=== PATIENT | male | born 1955 | race Caucasian/White ===

== ENCOUNTER → 2019-12-07 12:19 | Outpatient (CLI) | payer BC, SELFPAY ==
--- NOTE | ~2019-12-07 | MR_ITS ---
EXAMINATION: MR cervical spine wo con DATE: 12/07/2019 13:09 INDICATION: Cervical spondylosis without myelopathy or radiculopathy. Neck pain. TECHNIQUE: Magnetic resonance imaging (MRI) of the cervical spine was performed without intravenous c ontrast. Sequences included sagittal T2-weighted FSE, sagittal STIR FSE, sagittal T1-weighted FSE, ax ial MERGE, and axial T2-weighted FSE. COMPARISON: Cervical spine MRI 12/28/2016 FINDINGS: There is 3 degrees levocurvature of cervical spine. There is 2 mm retrolisthesis of C5 on C 6 and 2 mm anterolisthesis of C7 on T1. Vertebral body heights are normal. There is severely decrease d disc height at C5-C6. The spinal cord signal intensity is normal. The following disc levels are spe cifically discussed: C2-C3: There is a central protrusion. There is no uncovertebral joint osteoarthritis. There is severe bilateral facet joint osteoarthritis. There is no neural foraminal stenosis. There is no central can al stenosis. C3-C4: The disc does not extend beyond the endplate margin. There is mild right and severe left uncov ertebral joint osteoarthritis. There is severe bilateral facet joint osteoarthritis. There is mild bi lateral neural foraminal stenosis. There is no central canal stenosis. C4-C5: The disc does not extend beyond the endplate margin. There is moderate bilateral uncovertebral joint osteoarthritis. There is severe right and moderate left facet joint osteoarthritis. There is m oderate right and mild left neural foraminal stenosis. There is no central canal stenosis. C5-C6: The disc is bulging. There is severe bilateral uncovertebral joint osteoarthritis. There is mo derate bilateral facet joint osteoarthritis. There is mild right and severe left neural foraminal jacqueline nosis. There is mild central canal stenosis with ventral indentation of the spinal cord. C6-C7: The disc does not extend beyond the endplate margin. There is mild right and moderate left unc overtebral joint osteoarthritis. There is severe bilateral facet joint osteoarthritis. There is mild bilateral neural foraminal stenosis. There is no central canal stenosis. C7-T1: The disc does not extend beyond the endplate margin. There is no uncovertebral joint osteoarth ritis. There is severe bilateral facet joint osteoarthritis. There is moderate right and mild left ne ural foraminal stenosis. There is no central canal stenosis. IMPRESSION: 1. Severe cervical spondylosis, worst at C5-C6, stable from 12/28/2016. Reviewed, dictated and finalized at location A. 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
== END ==
PROVIDERS: PCP Family Medicine
DX: M47.812 Spondylosis without myelopathy or radiculopathy, cervical region (principal)
CPT/HCPCS: 72141

== ENCOUNTER 2024-05-19 08:41 | Outpatient (CLI) | payer MEDICARE, SELFPAY ==
--- NOTE | ~2024-05-19 | PE_ITS ---
EXAMINATION: PET_PETPSMAST_PT DATE: 05/19/2024 10:48 INDICATION: Prostate cancer TECHNIQUE: 4.627 mCi of Locametz Ga-68(55-Xf-guhxcrxohd) was administered i.v. Low dose computed jimmy ography (CT) images were acquired from the base of the brain to the base of the brain to the proximal thighs for attenuation correction and anatomic localization. Positron emission tomography (PET) imag es were acquired in the same distribution beginning 91 minutes after injection. Images including fuse d PET/CT images were reconstructed in axial, coronal, and sagittal planes. Automated exposure control technique was employed. The dose-length product was 1248.18mGy-cm. COMPARISON: None FINDINGS: Head/neck: Typical pattern of symmetric physiologic increased activity in the lacrimal, parotid and submandibula r glands as well as along the mucosa of the nasal and oral cavities, pharynx and hypopharynx. No path ologically enlarged cervical lymphadenopathy or suspicious foci of increased uptake in the visualized head or neck. Chest: Mild dependent atelectasis in the lungs. No suspicious pulmonary nodules, pneumonia or pleural effusi on. Heart size is normal. Minimal atherosclerotic coronary artery calcific location and minimal aorti c valve calcification. Thoracic aorta is normal in caliber. No pathologically enlarged or PSMA avid t horacic lymphadenopathy. Abdomen/pelvis/proximal thighs: Physiologic renal accumulation and excretion of activity in the kidneys, bladder and along portions o f ureters. Subtle asymmetric increased uptake at the left posterior aspect of the enlarged prostate p otentially representing the site of the reported primary prostate cancer although level of activity i s relatively low with maximal SUV of 4.8. Normal degree and slightly heterogenous pattern of increase d uptake throughout the liver and spleen without radiologic correlate or dominant PSMA avid lesion. T he gallbladder, pancreas and bilateral adrenal glands are normal. Moderate uptake scattered throughou t the bowels with typical duodenal and proximal jejunal predominance and without radiologic correlate , also likely physiologic. There is moderate colonic diverticulosis with a sigmoid predominance witho ut adjacent inflammatory change to suggest diverticulitis. Normal appendix. Small right and moderate- sized left fat-containing inguinal hernias. No other abnormal foci of increased uptake or pathologica lly enlarged lymphadenopathy in the abdomen, pelvis or proximal thighs. Musculoskeletal: Mild S-shaped scoliosis with mild thoracic dextro scoliosis and mild lumbar levoscoliosis. Mild to mo derate thoracic and severe lumbar and lower cervical spondylosis. No suspicious lytic, blastic or PSM A avid bone lesions. IMPRESSION: 1. Subtle asymmetric increased uptake at the left posterior prostate which could represent a reported primary prostate cancer although the level activity remains relatively low. No other evident metasta tic disease although sensitivity would be decreased given the low uptake demonstrated by the suspecte d primary lesion. Reviewed, dictated and finalized at location A. IMPRESSION: 1. Subtle asymmetric increased uptake at the left posterior prostate which coul d represent a reported primary prostate cancer although the level activity consuelo ins relatively low. No other evident metastatic disease although sensitivity wo uld be decreased given the low uptake demonstrated by the suspected primary les ion.
== END 2024-05-19 08:42 | disposition home or self-care (01) ==
PROVIDERS: PCP Family Medicine; Visit Provider Radiology Radiation Oncology
DX: C61 Malignant neoplasm of prostate (principal)
CPT/HCPCS: 78815; A9596

== ENCOUNTER 2025-04-14 11:11 | Emergency (ER) | payer MEDICARE, SELFPAY ==
--- NOTE | ~2025-04-14 | CT_ITS ---
EXAMINATION: CT abdomen pelvis w con DATE: 04/14/2025 14:37 INDICATION: Left lower quadrant pain TECHNIQUE: Computed tomography (CT) of the abdomen and pelvis was performed with 100 cc Omnipaque 350 intravenous contrast. The dose-length product was 876.93 mGy-cm. Automated exposure control and iter ative reconstruction technique were employed. COMPARISON: CT dated 05/09/2009 FINDINGS: Lung bases are unremarkable. Dependent atelectasis. Heart size normal. No significant pleur al or pericardial effusion. Fatty infiltration of the liver. Gallbladder is mildly distended. The spleen, pancreas, right adrenal gland are unremarkable. There is a low-density 1.3 cm left adrenal mass, most likely benign adenoma. There are bilateral renal cysts. No hydronephrosis. Nonobstructive bowel gas pattern. There is thick ening of the sigmoid colon with multiple diverticula and surrounding inflammatory change, consistent with acute diverticulitis. No evidence for abscess. There is a fat-containing left inguinal hernia. M oderate-severe lumbar spondylosis. There is levoscoliosis. IMPRESSION: 1. Acute uncomplicated sigmoid diverticulitis. Reviewed, dictated and finalized at location A.
[2025-04-14 11:32] VITALS: BP 130/83; PULSE 77; RESP 18; TEMP 36.1; O2SAT 100
--- OUTSIDE RECORDS SUMMARY | 2025-04-14 12:15 | XMS_ITS | Encounter Summary ---
Author Organization [facility] Address [address] [place] [address] Care Team Providers Care Firearms Instructor Name Role Phone Unavailable Primary Care Provider Unavailabl e Encounter Details Date Type Department Care Team (Late st Contact Info) Description 11/25/2023 Lab Requisition [facility] - DermPath Lab [address] [facility] [place] [address] Mala Mccord MD [address] [facility] [address] [place] [address] Social History Tobacco Use Types Packs/Day Years Used Date Smoking Tobacco: Never Assessed Sex and Gender Information Value Date Recorded Sex Assigned at Not on file Legal Sex Male 11:16 AM RETAIL PRICING COORDINATOR Gender Identity Not on file Sexual Orientation Not on file documented as of this encounter Plan of Treatment Not on file documented as of this encounter Procedures Procedure Name Priority Date/Time Associated Diagnosis Comments DERMATOPATHOLOGY Routine 11/25/2023 9:19 AM RETAIL PRICING COORDINATOR documented in this encounter Results * DERMATOPATHOLOGY (11/25/2023 9:19 AM RETAIL PRICING COORDINATOR) Case Report Dermatopathology Report Case: [id number] Authorizing Provider: Mala Mccord MD Collected: 11/25/2023 09:19 AM Ordering Location: [facility] DermPath Lab Received: 11/26/2023 07:35 AM Pathologist: Sandra Feldman MD Specimen: Skin, left arm 12:35 PM RETAIL PRICING COORDINATOR DERMATOPATHOLOGY LABORATORY Final Diagnosis Specimen A. SKIN, left arm: SEBORRHEIC KERATOSIS, INFLAMED (L82.0) 12:35 PM RETAIL PRICING COORDINATOR DERMATOPATHOLOGY LABORATORY at 1235 RETAIL PRICING COORDINATOR Clinical History R/O Melanoma irregular Border, Irregular color, Brown Macule 12:[address] [facility] DERMATOPATHOLOGY LABORATORY Gross Description Specimen A: Received is one formalin filled container labeled with the patient's name and designated left arm. The specimen consists of a shave biopsy measuring 11x9x1 mm. Jar 0. 12:[address] [facility] DERMATOPATHOLOGY LABORATORY Microscopic Description Specimen A. SKIN, left arm: There is hyperkeratosis, parakeratosis, papillomatosis, and acanthosis of the epidermis. There is a lymphohistiocytic infiltrate within the papillary dermis that is focally lichenoid. 12:[address] [facility] DERMATOPATHOLOGY LABORATORY Disclaimer An external and internal positive and negative controls are appropriate for the histochemical, immunohistochemical and immunofluorescence stain(s) in this case (if any), except where stated explicitly. The performance characteristics of the stain(s) cited in this report were developed and its performance characteristic determined by the Dermatopathology Laboratory at [facility], directed by Dr. Wes Pearce. These tests need not be, and therefore are not, approved by the [place] Food and Drug Administration. The tests are used for clinical purposes. Billing Codes Specimen Charges Stain Charges 96701 1 12:[address] [facility] DERMATOPATHOLOGY LABORATORY Embedded Images 12:[address] [facility] DERMATOPATHOLOGY LABORATORY Pathology/Cytolo gy TISSUE SPECIMEN FROM SKIN / Unknown 11/25/2023 9:19 AM RETAIL PRICING COORDINATOR 11/26/2023 7:35 AM RETAIL PRICING COORDINATOR us Mala Mccord MD LAB - PATHOLOGY/CYTOLOGY ORD ERABLES Final Result DERMATOPATHOLOGY LABORATORY [facility] - Department of Dermatology [facility] Medicine [address] [place] [address], [address] [phone] documented in this encounter Visit Diagnoses Not on filedocumented in this encounter
--- OUTSIDE RECORDS SUMMARY | 2025-04-14 12:15 | XMS_ITS | Encounter Summary ---
Author Organization [facility] Address [address] [place] [address] Care Team Providers Care Rent And Miscellaneous Remittance Clerk Name Role Phone Unavailable Primary Care Provider Unavailabl e Encounter Details Date Type Department Care Team (Late st Contact Info) Description 12/02/2024 Lab Requisition [facility] - DermPath Lab [address] [facility] [place] [address] Mala Mccord MD [address] [facility] [address] [place] [address] Social History Tobacco Use Types Packs/Day Years Used Date Smoking Tobacco: Never Assessed Sex and Gender Information Value Date Recorded Sex Assigned at Not on file Legal Sex Male 11:16 AM SKIN CARE SPECIALIST Gender Identity Not on file Sexual Orientation Not on file documented as of this encounter Plan of Treatment Not on file documented as of this encounter Procedures Procedure Name Priority Date/Time Associated Diagnosis Comments DERMATOPATHOLOGY Routine 12/02/2024 10:1 3 AM SKIN CARE SPECIALIST documented in this encounter Results * DERMATOPATHOLOGY (12/02/2024 10:13 AM SKIN CARE SPECIALIST) Case Report Dermatopathology Report Case: [id number] Authorizing Provider: Mala Mccord MD Collected: 12/02/2024 10:13 AM Ordering Location: [facility] - Received: 12/03/2024 06:56 AM DermPath Lab Pathologist: Nickie Miguel MD Specimens: A) - Skin, crown B) - Skin, right shoulder 1:14 PM SKIN CARE SPECIALIST DERMATOPATHOLOGY LABORATORY Final Diagnosis Specimen A. SKIN, crown: BASAL CELL CARCINOMA (C44.41) (see microscopic description and comment) DERMAL FIBROSIS (L90.5) POST-INFLAMMATORY PIGMENT ALTERATION (L81.9) Specimen B. 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 The specimen consists of a shave biopsy measuring 4x3x1 mm. Jar 0. Specimen B: Received is one formalin filled container labeled with the patient's name and designated right shoulder. The specimen consists of a shave biopsy measuring 10x8x2 mm. Jar 0. 1:14 PM [facility] DERMATOPATHOLOGY LABORATORY Microscopic Description Specimen A. SKIN, crown: The specimen consists of aggregates of basaloid cells, located within the superficial dermis, with high nuclear to cytoplasmic ratio and peripheral palisading. There is focal dermal fibrosis. Sections show abundant melanin within melanophages around the superficial vascular plexus. COMMENT: The small size of the specimen limits subtyping of the lesion. Specimen B. SKIN, right shoulder: The epidermis shows parakeratosis, full thickness disorderly maturation of keratinocytes, mitoses at different levels, and dyskeratotic cells. Sections show abundant melanin within melanophages around the superficial vascular plexus. 1:14 PM [facility] DERMATOPATHOLOGY LABORATORY Disclaimer An external and internal positive and negative controls are appropriate for the histochemical, immunohistochemical and immunofluorescence stain(s) in this case (if any), except where stated explicitly. The performance characteristics of the stain(s) cited in this report were developed and its performance characteristic determined by the Dermatopathology Laboratory at [facility], directed by Dr. Wes Pearce. These tests need not be, and therefore are not, approved by the [place] Food and Drug Administration. The tests are used for clinical purposes. Billing Codes Specimen Charges Stain Charges 64200 42186 1 1 1:14 PM [facility] DERMATOPATHOLOGY LABORATORY Embedded Images 1:14 PM [facility] DERMATOPATHOLOGY LABORATORY Pathology/Cytology TISSUE SPECIMEN FROM SKIN / Unknown 12/02/2024 10:13 AM SKIN CARE SPECIALIST 12/03/2024 6:56 AM SKIN CARE SPECIALIST Miscellaneous samples (specimen) TISSUE SPECIMEN FROM SKIN / Unknown 12/02/2024 10:13 AM SKIN CARE SPECIALIST 12/03/2024 6:56 AM SKIN CARE SPECIALIST us Mala Mccord MD LAB - PATHOLOGY/CYTOLOGY ORD ERABLES Final Result DERMATOPATHOLOGY LABORATORY [facility] - Department of Dermatology [facility] Specialized Medicine [address] [place] [address], [address] [phone] documented in this encounter Visit Diagnoses Not on filedocumented in this encounter
--- OUTSIDE RECORDS SUMMARY | 2025-04-14 12:15 | XMS_ITS | Clinical Summary ---
Author Organization [facility] Address [address] [place] [address] Care Team Providers Care Zumba Instructor Name Role Phone Unavailable Primary Care Provider Unavailabl e Source Comments [facility],non-owned Affiliates and Associated Physician Practices is amultiple site organization consisting of ambulatory clinics and hospital sitesin [place], [place], [place] and [place]. This disclosure is being madepursuant to the Care Everywhere program and may not contain all information available regarding this patient. Last updated 18.[facility] [employer] Social History Tobacco Use Types Packs/Day Years Used Date Smoking Tobacco: Never Assessed Sex and Gender Information Value Date Recorded Sex Assigned at Not on file Legal Sex Male 11:16 AM PROTOTYPE MODEL MAKER Gender Identity Not on file Sexual Orientation Not on file Plan of Treatment Health Maintenance Due Date Last Done Comments COLOGUARD (AGES 45-75) - COL ON CA SCREENING 1955 COLON MONITORING 1955 COLONOSCOPY - COLON CA SCREENING 1955 CT COLONOGRAPHY - COLON CA SCREENING 1955 Colorectal Cancer Screening 1955 FIT - COLON CA SCREENING 1955 FLEX SIG - COLON CA SCREENING 1955 LIPID TESTING 1955 HEPATITIS C SCREENING 10/10/1973 DTAP/TDAP/TD VACCINES (1 - Tdap) 1974 PNEUMOCOCCAL VACCINE 50+ (1 of 1 - PCV) 2005 ZOSTER VACCINE (1 of 2) 2005 COVID-19 VACCINE ( - 2023-2 5 season) 2024 DEPRESSION SCREENING 11/10/2024 MEDICARE AWV CALENDAR YEAR 2024 INFLUENZA VACCINE (Season Ended) 2025 Respiratory Syncytial Virus (RSV) Vaccine Pt: or over 60 yrs (1 - 1-dose 75+ series) 2030 HEPATITIS B VACCINE Aged Out No longe r eligible based on patient's age to complete this topic HIB VACCINE Aged Out No longer eligi ble based on patient's age to complete this topic HPV VACCINE Aged Out No longer eligi ble based on patient's age to complete this topic MENINGOCOCCAL (Group B) VACC INE SHARED DECISION-MAKING Aged Out No longer eligibl e based on patient's age to complete this topic MENINGOCOCCAL GROUPS A/C/Y/W VACCINE Aged Out No longer eligible b ased on patient's age to complete this topic Insurance [facility] MANAGED MEDICARE ADV
--- OUTSIDE RECORDS SUMMARY | 2025-04-14 12:15 | XMS_ITS | Encounter Summary ---
Author Organization [facility] Address [address] [place] [address] Care Team Providers Care Net Architect Name Role Phone Unavailable Primary Care Provider Unavailabl e Encounter Details Date Type Department Care Team (Late st Contact Info) Description 06/04/2023 Lab Requisition [facility] - DermPath Lab [address] [facility] [place] [address] Mala Mccord MD [address] [facility] [address] [place] [address] Social History Tobacco Use Types Packs/Day Years Used Date Smoking Tobacco: Never Assessed Sex and Gender Information Value Date Recorded Sex Assigned at Not on file Legal Sex Male 11:16 AM WHITE SPOOLER Gender Identity Not on file Sexual Orientation Not on file documented as of this encounter Plan of Treatment Not on file documented as of this encounter Procedures Procedure Name Priority Date/Time Associated Diagnosis Comments DERMATOPATHOLOGY Routine 06/04/2023 1:19 PM CDT documented in this encounter Results * DERMATOPATHOLOGY (06/04/2023 1:19 PM CDT) Case Report Dermatopathology Report Case: [id number] Authorizing Provider: Mala Mccord MD Collected: 06/04/2023 01:19 PM Ordering Location: [facility] DermPath Lab Received: 06/05/2023 02:48 PM Pathologist: Nickie Miguel MD Specimen: Skin, right restorationist 3 4:36 PM CDT DERMATOPATHOLOGY LABORATORY Final Diagnosis Specimen A. SKIN, right restorationist: SQUAMOUS CELL CARCINOMA, WELL DIFFERENTIATED (C44.329) 3 4:36 PM CDT DERMATOPATHOLOGY LABORATORY at 1636 CDT Clinical History NONHEALING, GROWING, R/O SCC VS BCC 3 4:36 PM CDT DERMATOPATHOLOGY LABORATORY Gross Description Specimen A: Received is one formalin filled container labeled with the patient's name and designated right restorationist. The specimen consists of a shave biopsy measuring 11x8x2 mm. Jar 0. 3 4:36 PM CDT DERMATOPATHOLOGY LABORATORY Microscopic Description Specimen A. SKIN, right restorationist: Arising in the epidermis and extending into the dermis there are irregularly shaped aggregates of keratinocytes showing evidence of premature cornification. 3 4:36 PM CDT DERMATOPATHOLOGY LABORATORY Disclaimer An external and internal positive and negative controls are appropriate for the histochemical, immunohistochemical and immunofluorescence stain(s) in this case (if any), except where stated explicitly. The performance characteristics of the stain(s) cited in this report were developed and its performance characteristic determined by the Dermatopathology Laboratory at [facility], directed by Dr. Wes Pearce. These tests need not be, and therefore are not, approved by the [place] Food and Drug Administration. The tests are used for clinical purposes. Billing Codes Specimen Charges Stain Charges 70568 1 3 4:36 PM CDT DERMATOPATHOLOGY LABORATORY Embedded Images 3 4:36 PM CDT DERMATOPATHOLOGY LABORATORY Pathology/Cytolo gy TISSUE SPECIMEN FROM SKIN / Unknown 06/04/2023 1:19 PM CDT 06/05/2023 2:48 PM CDT us Mala Mccord MD LAB - PATHOLOGY/CYTOLOGY ORD ERABLES Final Result DERMATOPATHOLOGY LABORATORY [facility] - Department of Dermatology [facility] Medicine [address] [place] [address], [address] [place] [address], [facility] [phone] documented in this encounter Visit Diagnoses Not on filedocumented in this encounter
[2025-04-14 13:52] VITALS: BP 160/81; PULSE 75; RESP 16; TEMP 36.7; O2SAT 98
[2025-04-14 13:59] LABS: Basophils Percent Auto 0.3 % (0.2-1.2); Eosinophils Percent Auto 0.3 % (0-4.4); Hematocrit 39.3 % (42.0-52.0); Immature Granulocyte Absolute 0.02 K/mm3 (0.00-0.031); Immature Granulocyte Percent A 0.3 % (0-0.5); Lymphocytes Absolute Auto 0.48 K/mm3 (0.9-3.2); Lymphocytes Percent Auto 6.3 % (18.3-44.2); Mean Corpuscular HGB Conc 33.1 g/dl (32-36); Mean Corpuscular Hemoglobin 30.7 pg (26-34); Mean Corpuscular Volume 92.7 fl (80-100); Mean Platelet Volume 10.3 fl (7.4-10.4); Monocytes Absolute Auto 0.5 K/mm3 (0.1-0.6); Monocytes Percent Auto 6.7 % (2.6-8.5); Neutrophils Absolute Auto 6.6 K/mm3 (1.3-6.7); Neutrophils Percent Auto 86.1 % (45.5-73.1); Platelet Count Result 151 k/mm3 (150-375); Red Blood Count 4.24 M/mm3 (4.6-6.20); Red Cell Distribution Width 12.6 % (11.5-14.5); White Blood Count 7.7 K/mm3 (4.5-10.0)
[2025-04-14 14:00] LABS: Add Urine Microscopic? NO; Appearance Urine Clear (Clear); Bilirubin Urine Negative (Negative); Blood Urine Negative (Negative); Color Urine Yellow (Yellow); Glucose Urine UA Negative (Negative); Ketones Urine Negative (Negative); Leukocyte Esterase Ur Negative LEU/UL (Negative); Nitrate Urine Negative (Negative); Protein Urine Negative (Negative); Specific Grav Ur 1.008 (1.001-1.035); Urobilinogen Urine 0.2 mg/dL (<2.0)
[2025-04-14 14:22] LABS: Alanine Aminotransferase 22 U/L (6-50); Albumin Level 4.5 g/dL (3.5-5.1); Alkaline Phosphatase 78 U/L (38-126); Anion Gap 7 mmol/L (4-12); Aspartate Amino Transferase 32 U/L (17-59); Bilirubin,Total 0.6 mg/dL (0.2-1.3); Blood Urea Nitrogen 14 mg/dL (9-20); Calcium 9.3 mg/dL (8.4-10.2); Carbon Dioxide 27 mmol/L (22-30); Chloride 103 mmol/L (98-107); Estimated CRCL calculation 99 ml/min; Estimated Glomerular Filt Rate > 60; Glucose 108 mg/dL (65-110); Lipase 29 U/L (23-300); Potassium 4.5 mmol/L (3.4-5.0); Sodium 137 mmol/L (137-145); Total Protein 7.8 g/dL (6.3-8.2)
--- NOTE | 2025-04-14 14:37 | ED_ITS ---
HPI - General Adult General Chief complaint: Abdominal Pain Stated complaint: left abd pain Time Seen by Provider: 04/14/25 13:57 History of Present Illness HPI narrative: 69-year-old male history of diverticulitis presenting to the emergency department for evaluation for intermittent left lower quadrant pain and an episode bloody stools. Patient states he has had some issues with constipation over the last few days as well. Patient does have a history of prostate cancer. Patient reports his last colonoscopy was approximately 5 years ago Related Data Home Medications ?Medication ?Instructions ?Recorded ?Confirmed ?Last Taken ?Type L.acidop,casei,lactis,rham-B.lact,trevor 1 cap PO BID 05/05/23 12/13/24 Unknown History 625 mg (10 billion cell) capsule (Advanced Probiotic) ascorbic acid (vitamin C) 500 mg 250 mg PO DAILY 05/05/23 12/13/24 Unknown History tablet fish, borage, flaxseed oils-omega 1 cap PO BID 05/05/23 12/13/24 Unknown History 3,6,9 comb no.1 1,200 mg capsule ([place] 3-6-9) ginkgo biloba leaf extract 120 mg 120 mg PO DAILY 05/05/23 12/13/24 Unknown History capsule jqhtptnvvvq-svy-hlexqjsdq-hrb 1 tablet PO BID 05/05/23 12/13/24 Unknown History 149-hyalur 500 mg-500 mg-66.7 mg tablet (Iborkdlnuyc-Ihtliedyjvt-JDI (with antiox)) uioyqfslvydx-qgb-oyjcu acid-vit 1 tablet PO DAILY 05/05/23 12/13/24 Unknown History K-lycop 400 mcg-20 mcg-370 mcg tablet (Men's 50 Plus Multivitamin) naproxen sodium 220 mg tablet 440 mg PO DAILY 05/05/23 12/13/24 Unknown History sour angulo extract 1,000 mg mg PO 12/04/23 12/13/24 Unknown History capsule (Tart Angulo Extract) Allergies Allergy/AdvReac Type Severity Reaction Status Date / Time No Known Allergies Allergy Mild Verified 12/13/24 10:59 Review of Systems 2 Review of Systems: All systems reviewed & are unremarkable except as noted in HPI and below PMFSH Past Medical History Medical History Abnormal liver function tests Prostate cancer Other dysphagia Polyosteoarthritis, unspecified Mixed hyperlipidemia Essential (primary) hypertension Social History Social History Smoking status: Never smoker Alcohol intake: never Substance use: never Substance use type: does not use Do You Feel Safe in your Home?: Yes Lack of Transportation: No Lack of Food: Never True Current Housing: I Have Housing Concerned About Future Housing: No Difficulty Paying Gas/Electric Bills: No Difficulty Paying for Meds: No Currently Unemployed: No Education: High School Diploma/GED Difficulty w/ Childcare or Family Care: No Living arrangements: with family Occupation/Education: retired Gender identity (if verbalized by the patient): Male Sexual Orientation (if Verbalized by the Patient): Straight or Heterosexual Spiritual care concerns: No Exam 2 Narrative: APPEARANCE: Well appearing, no pain, no distress, well-nourished. HEAD: normocephalic, atraumatic. EYES: PERRLA/EOMI, conjunctivae clear. NOSE: Normal no drainage EARS:TMS clear with good light reflex. THROAT: Pharynx clear, no exudate. NECK: Supple. No adenopathy, no masses. RESPIRATORY: Airway patent, respirations nonlabored. Clear to auscultation bilaterally, no rales, rhonchi, wheezing. CARDIOVASCULAR: Regular rate and rhythm without murmurs rubs or gallops. ABDOMINAL: Left lower quadrant tenderness to palpation, nondistended, normal bowel sounds MUSCULOSKELETAL: Moves all extremities. Strength/ROM intact, No edema, No calf tenderness. NEURO: Alert. Cranial nerves II through XII intact. Good gait. Good coordination SKIN: Warm, dry. Normal Color Course Vital Signs Vital signs: Vital Signs Temperature 97.0 F L 04/14/25 11:32 Pulse Rate 77 04/14/25 11:32 Respiratory Rate 18 04/14/25 11:32 Blood Pressure 130/83 04/14/25 11:32 Pulse Oximetry 100 04/14/25 11:32 Oxygen Delivery Room Air 04/14/25 11:32 Temperature 98.0 F 04/14/25 13:52 Pulse Rate 80 04/14/25 15:39 Respiratory Rate 16 04/14/25 15:39 Blood Pressure 163/92 H 04/14/25 15:39 Pulse Oximetry 97 04/14/25 15:39 Oxygen Delivery Room Air 06/05/25 11:32 Medical Decision Making [facility] Narrative Medical decision making narrative: 69-year-old male presenting to the emergency department for evaluation for left lower quadrant pain. Patient is currently afebrile with leukocytosis hemoglobin of 13.0. Patient has no acute abnormalities on his CMP urine was negative for infection. CT scan does show evidence of uncomplicated diverticulitis. Patient was started on Cipro and Flagyl emergency department. Patient was discharged home with some medications. Differential Diagnosis Differential Diagnosis: Colitis, diverticulitis, external hemorrhoid, internal hemorrhoid, melena, hematochezia Vital Signs Vital Signs: Vital Signs Temperature 97.0 F L 04/14/25 11:32 Pulse Rate 77 04/14/25 11:32 Respiratory Rate 18 04/14/25 11:32 Blood Pressure 130/83 04/14/25 11:32 Pulse Oximetry 100 04/14/25 11:32 Oxygen Delivery Room Air 04/14/25 11:32 Temperature 98.0 F 04/14/25 13:52 Pulse Rate 80 04/14/25 15:39 Respiratory Rate 16 04/14/25 15:39 Blood Pressure 163/92 H 04/14/25 15:39 Pulse Oximetry 97 04/14/25 15:39 Oxygen Delivery Room Air 04/14/25 11:32 Lab Data Lab results reviewed: Yes I reviewed the patient's lab results. 04/14/25 13:54 04/14/25 13:54 Labs: Lab Results 04/14/25 Range/Units 13:54 WBC 7.7 (4.5-10.0) K/mm3 RBC 4.24 L (4.6-6.20) M/mm3 Hgb 13.0 L (14.0-18.0) g/dL Hct 39.3 L (42.0-52.0) % MCV 92.7 (80-100) fl MCH 30.7 (26-34) pg MCHC 33.1 (32-36) g/dl RDW 12.6 (11.5-14.5) % Plt Count 151 (150-375) k/mm3 MPV 10.3 (7.4-10.4) fl Immature Gran % (Auto) 0.3 (0-0.5) % Neut % (Auto) 86.1 H (45.5-73.1) % Lymph % (Auto) 6.3 L (18.3-44.2) % Ida % (Auto) 6.7 (2.6-8.5) % Eos % (Auto) 0.3 (0-4.4) % Baso % (Auto) 0.3 (0.2-1.2) % Lymph # (Auto) 0.48 L (0.9-3.2) K/mm3 Ida # (Auto) 0.5 (0.1-0.6) K/mm3 Eos # (Auto) 0.0 (0-0.3) K/mm3 Baso # (Auto) 0.0 (0.0-0.1) K/mm3 Abs Immat Gran (auto) 0.02 (0.00-0.031) K/mm3 Absolute Neuts (auto) 6.6 (1.3-6.7) K/mm3 Absolute Nucleated RBC 0.000 (0.0-0.012) K/mm3 Nucleated RBC % 0.0 (0.0-0.2) % Sodium 137 (137-145) mmol/L Potassium 4.5 (3.4-5.0) mmol/L Chloride 103 (98-107) mmol/L Carbon Dioxide 27 (22-30) mmol/L Anion Gap 7 (4-12) mmol/L BUN 14 (9-20) mg/dL Creatinine 0.72 (0.7-1.3) mg/dL Estim Creat Clear Calc 99 ml/min Estimated GFR > 60 (59 - ) Glucose 108 (65-110) mg/dL Calcium 9.3 (8.4-10.2) mg/dL Total Bilirubin 0.6 (0.2-1.3) mg/dL AST 32 (17-59) U/L ALT 22 (6-50) U/L Alkaline Phosphatase 78 (38-126) U/L Total Protein 7.8 (6.3-8.2) g/dL Albumin 4.5 (3.5-5.1) g/dL Lipase 29 (23-300) U/L Urine Color Yellow (Yellow) Urine Appearance Clear (Clear) Urine pH 7.0 (5.0-9.0) Ur Specific [place] 1.008 (1.001-1.035) Urine Protein Negative (Negative) mg/dL Urine Glucose (UA) Negative (Negative) mg/dL Urine Ketones Negative (Negative) mg/dL Ur Blood (Man) Negative (Negative) Urine Nitrate Negative (Negative) Urine Bilirubin Negative (Negative) Urine Urobilinogen 0.2 (<2.0) mg/dL Leukocyte Esterase Rfl Negative (Negative) MERARY/UL Imaging Data Radiologist's impression: Impressions Abdomen/Pelvis CT 04/14/25 14:59 IMPRESSION: 1. Acute uncomplicated sigmoid diverticulitis. Discharge Plan Discharge Clinical Impression: Diverticulitis Patient Disposition: Home Condition: Stable Instructions: Antibiotic Form, Diverticulitis (DC) Additional Instructions: Antibiotic as directed until completed. Follow a clear liquid diet for the next 1-3 days. Have close follow-up with your GI physician. If you have any worsening symptoms and please call or return to the emergency department. Patient Language: Vincentian Prescriptions: New ciprofloxacin HCl [Cipro] 500 mg tablet 500 mg PO Q12H 7 Days Qty: 14 0RF metronidazole 500 mg tablet 500 mg PO Q12H 7 Days Qty: 14 0RF No Action Tart Angulo Extract 1,000 mg capsule PO triamcinolone acetonide 0.1 % cream 1 applic topical BID Qty: 80 0RF naproxen sodium 220 mg tablet 440 mg PO DAILY Men's 50 Plus Multivitamin 400-20-370 mcg tablet 1 tablet PO DAILY ueucpuon-hqw-soady-qsp471-piik [Lqhxyh-Gresv-QMT (with antiox)] 500-500-66.7 mg tablet 1 tablet PO BID ginkgo biloba leaf extract 120 mg capsule 120 mg PO DAILY Rx Instructions: give with meal/snack ascorbic acid (vitamin C) 500 mg tablet 250 mg PO DAILY [place] 3-6-9 1,200 mg capsule 1 cap PO BID Advanced Probiotic 625 mg (10 billion cell) capsule 1 cap PO BID halobetasol propionate 0.05 % cream 1 applic topical DAILY Qty: 50 0RF omeprazole 40 mg capsule,delayed release(DR/EC) 40 mg PO DAILY Qty: 100 1RF lisinopril 20 mg tablet 20 mg PO DAILY Qty: 100 1RF amoxicillin-pot clavulanate 875-125 mg tablet 1 tablet PO BID Qty: 20 0RF rosuvastatin 20 mg tablet 20 mg PO DAILY Qty: 90 1RF Follow-up/Referrals: Gabino Ley MD [Primary Care Provider] -
--- OUTSIDE RECORDS SUMMARY | 2025-04-14 15:25 | XMS_ITS | Encounter Summary ---
Author Organization [facility] Address [address] [place] [address] Care Team Providers Care Security Police Officer Name Role Phone Unavailable Primary Care Provider Unavailabl e Encounter Details Date Type Department Care Team (Late st Contact Info) Description 06/04/2023 Lab Requisition [facility] - DermPath Lab [address] [place] [address] Mala Mccord MD [address] 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 Gender Identity Not on file Sexual Orientation Not on file documented as of this encounter Plan of Treatment Not on file documented as of this encounter Procedures Procedure Name Priority Date/Time Associated Diagnosis Comments DERMATOPATHOLOGY Routine 06/04/2023 1:19 PM CDT documented in this encounter Results * DERMATOPATHOLOGY (06/04/2023 1:19 PM CDT) Case Report Dermatopathology Report Case: [id number] Authorizing Provider: Mala Mccord MD Collected: 06/04/2023 01:19 PM Ordering Location: [facility] DermPath Lab Received: 06/05/2023 02:48 PM Pathologist: Nickie Miguel MD Specimen: Skin, right orthodoxy 3 4:36 PM CDT DERMATOPATHOLOGY LABORATORY Final Diagnosis Specimen A. SKIN, right orthodoxy: SQUAMOUS CELL CARCINOMA, WELL DIFFERENTIATED (C44.329) 3 4:36 PM CDT DERMATOPATHOLOGY LABORATORY at 1636 CDT Clinical History NONHEALING, GROWING, R/O SCC VS BCC 3 4:36 PM CDT DERMATOPATHOLOGY LABORATORY Gross Description Specimen A: Received is one formalin filled container labeled with the patient's name and designated right orthodoxy. The specimen consists of a shave biopsy measuring 11x8x2 mm. Jar 0. 3 4:36 PM CDT DERMATOPATHOLOGY LABORATORY Microscopic Description Specimen A. SKIN, right orthodoxy: Arising in the epidermis and extending into [...] characteristic determined by the Dermatopathology Laboratory at [facility], directed by Dr. Wes Pearce. These tests need not be, and therefore are not, approved by the [place] Food and Drug Administration. The tests are used for clinical purposes. Billing Codes Specimen Charges Stain Charges 97523 1 3 4:36 PM CDT DERMATOPATHOLOGY LABORATORY Embedded Images 3 4:36 PM CDT DERMATOPATHOLOGY LABORATORY Pathology/Cytolo gy TISSUE SPECIMEN FROM SKIN / Unknown 06/04/2023 1:19 PM CDT 06/05/2023 2:48 PM CDT us Mala Mccord MD LAB - PATHOLOGY/CYTOLOGY ORD ERABLES Final Result DERMATOPATHOLOGY LABORATORY [facility] - Department of Dermatology [facility] Medicine [address] [place] [address], [address] [place] [address], [place] [phone] documented in this encounter Visit Diagnoses Not on filedocumented in this encounter
--- OUTSIDE RECORDS SUMMARY | 2025-04-14 15:25 | XMS_ITS | Clinical Summary ---
Author Organization [facility] Address [address] [place] [address] Care Team Providers Care Manufacturing Test Engineer Name Role Phone Unavailable Primary Care Provider Unavailabl e Source Comments [facility],non-owned Affiliates and Associated Physician Practices is amultiple site organization consisting of ambulatory clinics and hospital sitesin [place], [place], [place] and [place]. This disclosure is being madepursuant to the Care Everywhere program and may not contain all information available regarding this patient. 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
--- OUTSIDE RECORDS SUMMARY | 2025-04-14 15:26 | XMS_ITS | Encounter Summary ---
Author Organization [facility] Address [address] [place] [address] Care Team Providers Care Wire Weaving Loom Setter Name Role Phone Unavailable Primary Care Provider Unavailabl e Encounter Details Date Type Department Care Team (Late st Contact Info) Description 12/02/2024 Lab Requisition [facility] - DermPath Lab 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 Gender Identity Not on file Sexual Orientation Not on file documented as of this encounter Plan of Treatment Not on file documented as of this encounter Procedures Procedure Name Priority Date/Time Associated Diagnosis Comments DERMATOPATHOLOGY Routine 12/02/2024 10:1 3 AM SURVEILLANCE DUAL RATE OFFICER documented in this encounter Results * DERMATOPATHOLOGY (12/02/2024 10:13 AM SURVEILLANCE DUAL RATE OFFICER) Case Report Dermatopathology Report Case: [id number] Authorizing Provider: Mala Mccord MD Collected: 12/02/2024 10:13 AM Ordering Location: [facility] - Received: 12/03/2024 06:56 AM DermPath Lab Pathologist: Nickie Miguel MD Specimens: A) - Skin, crown B) - Skin, right shoulder 1:14 PM SURVEILLANCE DUAL RATE OFFICER DERMATOPATHOLOGY LABORATORY Final Diagnosis Specimen A. SKIN, crown: BASAL CELL CARCINOMA (C44.41) (see microscopic description and comment) DERMAL FIBROSIS (L90.5) POST-INFLAMMATORY PIGMENT ALTERATION (L81.9) Specimen B. 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 Jar 0. 1:14 PM [facility] DERMATOPATHOLOGY LABORATORY Microscopic Description Specimen A. [...] around the superficial vascular plexus. 1:14 PM [facility] DERMATOPATHOLOGY LABORATORY Disclaimer An external and internal positive and negative controls are appropriate for the histochemical, immunohistochemical and immunofluorescence stain(s) in this case (if any), except where stated explicitly. The performance characteristics of the stain(s) cited in this report were developed and its performance characteristic determined by the Dermatopathology Laboratory at [facility], directed by Dr. Wes Pearce. These tests need not be, and therefore are not, approved by the [place] Food and Drug Administration. The tests are used for clinical purposes. Billing Codes Specimen Charges Stain Charges 60541 29847 1 1 1:14 PM [facility] DERMATOPATHOLOGY LABORATORY Embedded Images 1:14 PM [facility] DERMATOPATHOLOGY LABORATORY Pathology/Cytology TISSUE SPECIMEN FROM SKIN / Unknown 12/02/2024 10:13 AM SURVEILLANCE DUAL RATE OFFICER 12/03/2024 6:56 AM SURVEILLANCE DUAL RATE OFFICER Miscellaneous samples (specimen) TISSUE SPECIMEN FROM SKIN / Unknown 12/02/2024 10:13 AM SURVEILLANCE DUAL RATE OFFICER 12/03/2024 6:56 AM SURVEILLANCE DUAL RATE OFFICER us Mala Mccord MD LAB - PATHOLOGY/CYTOLOGY ORD ERABLES Final Result DERMATOPATHOLOGY LABORATORY [facility] - Department of Dermatology Specialized Medicine [address] [place] [address], [address] [phone] documented in this encounter Visit Diagnoses Not on filedocumented in this encounter
--- OUTSIDE RECORDS SUMMARY | 2025-04-14 15:26 | XMS_ITS | Encounter Summary ---
Author Organization [facility] Address [address] [place] [address] Care Team Providers Care Roving Hauler Name Role Phone Unavailable Primary Care Provider Unavailabl e Encounter Details Date Type Department Care Team (Late st Contact Info) Description 11/25/2023 Lab Requisition [facility] - DermPath Lab [address] [place] [address] Mala Mccord MD [address] [facility] [address] [place] [address] Social History Tobacco Use Types Packs/Day Years Used Date Smoking Tobacco: Never Assessed Sex and Gender Information Value Date Recorded Sex Assigned at Not on file 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 Gender Identity Not on file Sexual Orientation Not on file documented as of this encounter Plan of Treatment Not on file documented as of this encounter Procedures Procedure Name Priority Date/Time Associated Diagnosis Comments DERMATOPATHOLOGY Routine 11/25/2023 9:19 AM SUPPLIER SPECIALIST documented in this encounter Results * DERMATOPATHOLOGY (11/25/2023 9:19 AM SUPPLIER SPECIALIST) Case Report Dermatopathology Report Case: [id number] Authorizing Provider: Mala Mccord MD Collected: 11/25/2023 09:19 AM Ordering Location: [facility] DermPath Lab Received: 11/26/2023 07:35 AM Pathologist: Sandra Feldman MD Specimen: Skin, left arm 12:35 PM SUPPLIER SPECIALIST DERMATOPATHOLOGY LABORATORY Final Diagnosis Specimen A. SKIN, left arm: SEBORRHEIC KERATOSIS, INFLAMED (L82.0) 12:35 PM SUPPLIER SPECIALIST DERMATOPATHOLOGY LABORATORY at 1235 SUPPLIER SPECIALIST Clinical History R/O Melanoma irregular Border, Irregular color, Brown Macule 12:35 PM [facility] DERMATOPATHOLOGY LABORATORY Gross Description Specimen A: Received is one formalin filled container labeled with the patient's name and designated left arm. The specimen consists of a shave biopsy measuring 11x9x1 mm. Jar 0. 12:35 PM [facility] DERMATOPATHOLOGY LABORATORY Microscopic Description Specimen A. SKIN, left arm: There is hyperkeratosis, parakeratosis, papillomatosis, and acanthosis of the epidermis. There is a lymphohistiocytic infiltrate within the papillary dermis that is focally lichenoid. 12:35 PM [facility] DERMATOPATHOLOGY LABORATORY Disclaimer An external and internal positive and negative controls are appropriate for the histochemical, immunohistochemical and immunofluorescence stain(s) in this case (if any), except where stated explicitly. The performance characteristics of the stain(s) cited in this report were developed and its performance characteristic determined by the Dermatopathology Laboratory at [facility], directed by Dr. Wes Pearce. These tests need not be, and therefore are not, approved by the [place] Food and Drug Administration. The tests are used for clinical purposes. Billing Codes Specimen Charges Stain Charges 56274 1 12:35 PM [facility] DERMATOPATHOLOGY LABORATORY Embedded Images 12:35 PM [facility] DERMATOPATH[facility]Y LABORATORY Pathology/Cytolo gy TISSUE SPECIMEN FROM SKIN / Unknown 11/25/2023 9:19 AM SUPPLIER SPECIALIST 11/26/2023 7:35 AM SUPPLIER SPECIALIST us Mala Mccord MD LAB - PATHOLOGY/CYTOLOGY ORD ERABLES Final Result DERMATOPATHOLOGY LABORATORY [facility] - Department of Dermatology [facility] Medicine [address] [place] [address], [address] [phone] documented in this encounter Visit Diagnoses Not on filedocumented in this encounter
[2025-04-14] MEDS: metroNIDAZOLE 500 MG TABLET PO (15:27)
[2025-04-14] MEDS: CIPROFLOXACIN 500 MG TAB PO (15:27)
[2025-04-14 15:39] VITALS: BP 163/92; PULSE 80; RESP 16; O2SAT 97
== END 2025-04-14 15:41 | disposition home or self-care (01) ==
PROVIDERS: Emergency Provider Emergency Medicine; PCP Family Medicine
DX: K57.92 Diverticulitis of intestine, part unspecified, without perforation or abscess without bleeding (principal); E78.2 Mixed hyperlipidemia; I10 Essential (primary) hypertension; Z85.46 Personal history of malignant neoplasm of prostate
CPT/HCPCS: 36415; 74177; 80053; 81003; 83690; 85025; 99283; 99284; A9270; Q9967

== ENCOUNTER 2025-07-13 13:51 | Outpatient (CLI) | payer MEDICARE, SELFPAY ==
--- NOTE | ~2025-07-13 | XR_ITS ---
Clinical history:Right lower back pain that radiates into the right hip and leg. EXAM:X-ray lumbar spine 6 views with bending TECHNIQUE:7 images of the lumbar spine were obtained. Comparisons:None available at this time FINDINGS: Bone mineralization is within normal limits. Grade 1 anterolisthesis of L4 on L5 which is grossly stable with flexion and extension. Grade 1 retrolisthesis of L2 on L3 which is grossly stable with flexion and extension. Moderate intervertebral disc space narrowing at the L3-4, L4-5 and L5-S1 levels. Moderate degenerative change in the mid and lower lumbar facet joints. Mild levoconvex curvature of the lumbar spine. There is bowel gas and stool projecting over the pelvis which limits evaluation. Evaluation is slightly limited due to the patient's imaging characteristics. IMPRESSION: 1. No compression fracture in the lumbar spine. 2. Moderate degenerative change in the mid and lower lumbar spine. 3. Grade 1 anterolisthesis of L4 on L5 which is grossly stable with flexion and extension. 4. Grade 1 retrolisthesis of L2 on L3 which is grossly stable with flexion and extension. If symptoms persist or worsen, consider an MRI of the lumbar spine for further assessment. Reviewed, dictated and finalized at location Q.
--- NOTE | ~2025-07-13 | XR_ITS ---
XR hip RT min 2V 07/13/2025 14:59 Indication: Right hip pain Procedure: 2 views right hip Comparison: No prior studies for comparison. Findings: Mild osteoarthritis of the right hip. No fracture, subluxation or dislocation. No significant soft tissue abnormality. No foreign body. Impression: 1: Mild osteoarthritis of the right hip. Reviewed, dictated and finalized at location O. Impression: 1: Mild osteoarthritis of the right hip.
== END 2025-07-13 13:52 | disposition home or self-care (01) ==
PROVIDERS: PCP Family Medicine; Visit Provider Family Medicine
DX: M51.369 Other intervertebral disc degeneration, lumbar region without mention of lumbar back pain or lower extremity pain (principal); M16.11 Unilateral primary osteoarthritis, right hip
CPT/HCPCS: 72114; 73502

== ENCOUNTER 2025-08-23 01:13 | Day surgery (SDC) | payer MEDICARE, SELFPAY ==
[2025-08-16 14:48] VITALS: BMI 31.6
--- OUTSIDE RECORDS SUMMARY | 2025-08-23 01:16 | XMS_ITS | Encounter Summary ---
Author Organization [facility] Address [address] [place] [id number] Care Team Providers Care Medication Administration Professional Name Role Phone Gabino Ley MD Primary Care Provider [phone] Encounter Details Date Type Department Care Team (Late st Contact Info) Description 09/30/2020 Prep for Procedure [facility] [place], [place] [id number] Ap Valerio MD 3 [facility] Elliott [address] [place] [address] [phone] Social History Tobacco Use Types Packs/Day Years Used Date Smoking Tobacco: Never Smokeless Tobacco: Never Alcohol Use Standard Drinks/Week Comments Not Currently 0 (1 standard drink = 0.6 oz pur e alcohol) PHQ-2 Answer Date Recorded PHQ-2 Score - If the patient scores above 3, please move on to questions 3-9 0 06/08/2020 Sex and Gender Information Value Date Recorded Sex Assigned at Not on file Legal Sex Male 4:08 PM OVERNIGHT ASSOCIATE Gender Identity Not on file Sexual Orientation Not on file COVID-19 Exposure Response Date Recorded In the last month, have you been in contact with someone who was confirmed or suspected to have Coronavirus / COVID-19? No / Unsure 09/06/2020 10:55 AM CDT documented as of this encounter Plan of Treatment Not on file documented as of this encounter Results * (ABNORMAL) PRE-SURGICAL/PRE-PROCEDURE CORONAVIRUS (COVID 19) (12/03/2020 10:30 AM OVERNIGHT ASSOCIATE) CORONAVIRUS SARS COV 2 PCR (RESP) DETECTED(A) NOT DETECTED 12/04/2020 4:16 PM OVERNIGHT ASSOCIATE [facility] Comment: A Detected result is considered a positive test result for COVID-19. This indicates that RNA from SARS-CoV-2 (formerly 2019-nCoV) was detected, and the patient is infected with the virus and presumed to be contagious. If requested by public health authority, specimen will be sent for additional testing. Please review the Fact Sheets and FDA authorized labeling available for health care providers and patients using the following websites: https://www.i'mma.Descargas Online/home/Covid-19/HCP/NAAT/fact-sheet2 https://www.i'mma.Descargas Online/home/Covid-19/Patients/NAAT/ fact-sheet2 This test has been authorized by the FDA under an Emergency Use Authorization (EUA) for use by authorized laboratories. Due to the current public health emergency, [facility] is receiving a high volume of samples from a wide variety of swabs and media for COVID-19 testing. In order to serve patients during this public health crisis, samples from appropriate clinical sources are being tested. Negative test results derived from specimens received in non-commercially manufactured viral collection and transport media, or in media and sample collection kits not yet authorized by FDA for COVID-19 testing should be cautiously evaluated and the patient potentially subjected to extra precautions such as additional clinical monitoring, including collection of an additional specimen. Methodology: Nucleic Acid Amplification Test (NAAT) includes RT-PCR or TMA Additional information about COVID-19 can be found at the [facility] website: www.[place].[employer]as Online/Covid19. Test performed at [facility] [address] [place] [address] Director: CANDY MEEK DO,MPH FIRST TEST NO 12/03/2020 12:54 PM [facility] EMPLOYED IN HEALTHCARE NO 12/03/2020 12:54 PM OVERNIGHT ASSOCIATE [facility] SYMPTOMATIC DEFINED BY CDC NO 12/03/2020 12:54 PM [facility] DATE OF SYMPTOM ONSET NO 12/03/2020 12:55 PM OVERNIGHT ASSOCIATE [facility] HOSPITALIZATION STATUS NO 12/03/2020 12:54 PM OVERNIGHT ASSOCIATE [facility] PATIENT IN ICU NO 12/03/2020 12:54 PM OVERNIGHT ASSOCIATE [facility] RESIDENT OF [facility] CARE NO 12/03/2020 12:54 PM OVERNIGHT ASSOCIATE [facility] NOT 12/03/2020 12:55 PM OVERNIGHT ASSOCIATE [facility] PATIENT'S RACE WHITE OR 12/03/2020 12:54 PM OVERNIGHT ASSOCIATE [facility] ETHNICITY NONHISPANIC 12/03/2020 12:54 PM OVERNIGHT ASSOCIATE [facility] SOURCE (QST) NASOPHARYNGEAL SWAB 12/03/2020 12:54 PM OVERNIGHT ASSOCIATE [facility] NASOPHARYNGEAL SWAB / Unknown 12/03/2020 10:30 AM OVERNIGHT ASSOCIATE us Ap Valerio MD MICROBIOLOGY - GENERAL JUAN CARLOS RUSS Final Result Performing Organization Address City/State/[facility] Co de Phone Number [facility] [address] [place] [address], [facility] [id number] [place] [address], * PRE-SURGICAL/PRE-PROCEDURE CORONAVIRUS (COVID 19) (10/01/2020 9:18 AM OVERNIGHT ASSOCIATE) CORONAVIRUS SARS COV 2 PCR (RESP) NOT DETECTED NOT DETECTED 10/02/2020 1:45 PM OVERNIGHT ASSOCIATE [facility] Comment: A Not Detected (negative) test result for this test means that SARS- CoV-2 RNA was not present in the specimen above the limit of detection. A negative result does not rule out the possibility of COVID-19 and should not be used as the sole basis for treatment or patient management decisions. If COVID-19 is still suspected, based on exposure history together with other clinical findings, re-testing should be considered in consultation with public health authorities. Laboratory test results should always be considered in the context of clinical observations and epidemiological data in making a final diagnosis and patient management decisions. Please review the Fact Sheets and FDA authorized labeling available for health care providers and patients using the following websites: https://www.i'mma.Descargas Online/home/Covid-19/HCP/QuestIVD/fact- sheet.html https://www.i'mma.Descargas Online/home/Covid-19/Patients/ QuestIVD/fact-sheet.html This test has been authorized by the FDA under an Emergency Use Authorization (EUA) for use by authorized laboratories. Due to the current public health emergency, [facility] is receiving a high volume of samples from a wide variety of swabs and media for COVID-19 testing. In order to serve patients during this public health crisis, samples from appropriate clinical sources are being tested. Negative test results derived from specimens received in non-commercially manufactured viral collection and transport media, or in media and sample collection kits not yet authorized by FDA for COVID-19 testing should be cautiously evaluated and the patient potentially subjected to extra precautions such as additional clinical monitoring, including collection of an additional specimen. Methodology: Nucleic Acid Amplification Test (NAAT) includes RT-PCR or TMA Additional information about COVID-19 can be found at the [facility] website: www.Scoville.Descargas Online/Covid19. Test performed at [facility] [place] [address] [place] [address] Director: CANDY MEEK DO,MPH FIRST TEST YES 10/01/2020 12:28 PM [facility] EMPLOYED IN HEALTHCARE NO 10/01/2020 12:28 PM OVERNIGHT ASSOCIATE [facility] SYMPTOMATIC DEFINED BY CDC NO 10/01/2020 12:28 PM [facility] DATE OF SYMPTOM ONSET NO 10/01/2020 12:54 PM [facility] HOSPITALIZATION STATUS NO 10/01/2020 12:28 PM OVERNIGHT ASSOCIATE [facility] PATIENT IN ICU NO 10/01/2020 12:28 PM [facility] RESIDENT OF [facility] NO 10/01/2020 12:28 PM OVERNIGHT ASSOCIATE [facility] NOT 10/01/2020 12:54 PM OVERNIGHT ASSOCIATE [facility] PATIENT'S RACE WHITE OR 10/01/2020 12:28 PM OVERNIGHT ASSOCIATE [facility] ETHNICITY NONHISPANIC 10/01/2020 12:28 PM OVERNIGHT ASSOCIATE [facility] SOURCE (QST) NASOPHARYNGEAL SWAB 10/01/2020 12:28 PM OVERNIGHT ASSOCIATE [facility] NASOPHARYNGEAL SWAB / Unknown 10/01/2020 9:18 AM OVERNIGHT ASSOCIATE us Ap Valerio MD MICROBIOLOGY - [facility] JU[facility] CARLOS RUSS Final Result [facility] [address] [place] [address], [facility] [address] [address], documented in this encounter Visit Diagnoses Diagnosis History of colon polyps- Primary Personal history of colonic polyps Esophagitis, erosive Other esophagitis documented in this encounter Additional Health Concerns Infection Onset Date Last Indicated Resolved Time COVID-19 Rule Out 10/01/2020 10/01/2020 10/02/2020 1:46 PM OVERNIGHT ASSOCIATE COVID-19 Rule Out 12/03/2020 12/03/2020 12/04/2020 4:16 PM OVERNIGHT ASSOCIATE COVID-19 Confirmed 12/03/2020 12/03/2020 12:35 AM OVERNIGHT ASSOCIATE documented as of this encounter Care Teams Medication Administration Professional Relationship Specialty Start Date End Date Gabino Ley MD [address] [place] [id number] PCP - General FAMILY PRACTICE 10/06/19 documented as of this encounter
--- OUTSIDE RECORDS SUMMARY | 2025-08-23 01:16 | XMS_ITS | Clinical Summary ---
Author Organization [facility] Address [address] [place] [address] Care Team Providers Care Battery Technician Name Role Phone Gabino Ley MD Primary Care Provider [phone] Allergies No known active allergies Medications lisinopril 20 MG tablet Take 20 mg by mouth daily. 1 9 Active simvastatin 40 MG tablet TK 1 T PO ONCE A DAY IN THE EVENING 1 9 Active TURMERIC OR Active glucosamine-cho ndroitin 500-400 MG Cap Take 1 capsule by mouth daily. Active Ginkgo Biloba (GINKOBA OR) Active Multiple Vitamins-Minera ls (MULTIVITAMIN ADULT OR) Active Ascorbic Acid (VITAMIN C) 100 MG tablet Take 100 mg by mouth daily. Active Richton 3-6-9 Fatty Acids (OMEGA 3-6-9 COMPLEX OR) Active pseudoephedrine 30 MG tablet Take 30 mg by mouth every 4 (four) hours as needed for Congestion. Active halobetasol 0.05 % creamIndication s:Rash Apply topically 2 (two) times daily. 50 g 0 Active triamcinolone 0.1 % cream Apply topically daily. 0 Active ibuprofen 200 MG tabletIndicatio ns: NEEDED Take 200 mg by mouth every 6 (six) hours as needed for Pain. Indications: NEEDED Active Probiotic Product (PROBIOTIC ADVANCED) Cap Active omeprazole 40 MG capsule Take 40 mg by mouth 2 (two) times a day. Active NON FORMULARY Neureva Active Active Problems Problem Noted Date Diagnosed Date Adhesive capsulitis of right shoulder 03/09/2020 S/P arthroscopy of right shoulder 12/15/2019 Resolved Problems Problem Noted Date Diagnosed Date Resolved Date Labral tear of shoulder 12/09/2019 020 05/2020 Labral tear of long head of biceps tendon, right, initial encounter 10/26/2019 12/17/2019 Nontraumatic complete tear o f right rotator cuff 10/26/2019 12/17/2019 Arthritis of right acromioclavicular joint 10/26/2019 12/17/2019 Shoulder impingement, right 10/26/2019 12/17/2019 Immunizations Immunization Administration Dates Next Due Flucelvax 6 Months+ (Prefilled Syringe) 08/18/20 19 Shingrix 07/27/2019,05/24/2019 Family History Medical History Relation Comments Arthritis Father Diabetes Father Heart Disease Father Hypertension Father Arthritis Mother Cancer Mother breast Hypertension Mother None Sister Relation Status Comments Father Alive Mother Alive Sister Social History Tobacco Use Types Packs/Day Years [...] on file 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 Gender Identity Not on file Sexual Orientation Not on file Last Filed Vital Signs Vital Sign Reading Time Taken Comments Blood Pressure 141/82 02/01/2021 12:55 PM CDT Pulse 79 02/01/2021 12:55 PM CDT Temperature 36.7 C (98 F) 02/01/2021 12:26 PM CDT Respiratory Rate 13 02/01/2021 12:55 PM CDT Oxygen Saturation 98% 02/01/2021 12:55 PM CDT Inhaled Oxygen Concentration - - Weight 96.6 kg (213 lb) 01/31/2021 8:35 AM CDT Height 177.8 cm (5' 10) 01/31/2021 8:35 AM CDT Body Mass Index 30.56 01/31/2021 8:35 AM CDT Plan of Treatment Health Maintenance Due Date Last Done Comments Hepatitis C 1973 DTaP, Tdap and Td Vaccines ( 1 - Tdap) 1974 Pneumococcal Vaccine: 50+ Years (1 of 1 - PCV) 2005 Annual Medicare Wellness Visit 2020 COVID-19 Vaccine (1 - 2023-2 5 season) 2025 Influenza Adult (#1) 2025 08/18/2019 Colorectal Cancer Screening Colonoscopy (10 Years) 10/04/2030 10/04/2020 RSV Immunization or 60+ Years (1 - 1-dose 75+ series) 2030 Zoster Vaccines Completed 07/27/2019, 05/24/2019, 08/09/2014 Hepatitis A Vaccines Aged Out No long er eligible based on patient's age to complete this topic Meningococcal B Vaccine Aged Out No l onger eligible based on patient's age to complete this topic Meningococcal Vaccine Aged Out No trevor nathan eligible based on patient's age to complete this topic RSV Immunizations Under 20 Months Aged Out No longer eligible b ased on patient's age to complete this topic Medical Devices Implanted Type Area Novelty Printing Machine Operator Device Identifier Shelf Expiration Date Model / Serial / Lot Toe Suture Blomkest Implanted:Qty: 5 on 12/15/2019 by Teodoro iVlla MD at [facility] Right: Shoulder 06/09/2020 [id number] / / [id number] Insurance [facility] MEDICARE Care Teams Battery Technician Relationship Specialty Start Date End Date Gabino Ley MD [address] [place] [address] [place] [id number] PCP - General FAMILY PRACTICE 10/06/19
--- OUTSIDE RECORDS SUMMARY | 2025-08-23 01:16 | XMS_ITS | Encounter Summary ---
Author Organization [facility] Address [address] [place] [address] Care Team Providers Care Tag Press Operator Name Role Phone Unavailable Primary Care Provider Unavailabl e Encounter Details Date Type Department Care Team (Late st Contact Info) Description 06/04/2023 Lab Requisition [facility] - DermPath Lab [address] [place] [address] Mala Mccord MD [address] [facility] [address] [place] [address] Social History Tobacco Use Types Packs/Day Years Used Date Smoking Tobacco: Never Assessed Sex and Gender Information Value Date Recorded Sex Assigned at Not on file 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 Gender Identity Not on file Sexual Orientation Not on file documented as of this encounter Plan of Treatment Not on file documented as of this encounter Procedures Procedure Name Priority Date/Time Associated Diagnosis Comments DERMATOPATHOLOGY Routine 06/04/2023 1:19 PM CDT documented in this encounter Results * DERMATOPATHOLOGY (06/04/2023 1:19 PM CDT) Case Report Dermatopathology Report Case: [id number] Authorizing Provider: Mala Mccord MD Collected: 06/04/2023 01:19 PM Ordering Location: [facility] DermPath Lab Received: 06/05/2023 02:48 PM Pathologist: Nickie Miguel MD Specimen: Skin, right uatsdin 3 4:36 PM CDT DERMATOPATHOLOGY LABORATORY Final Diagnosis Specimen A. SKIN, right uatsdin: SQUAMOUS CELL CARCINOMA, WELL DIFFERENTIATED (C44.329) 3 4:36 PM CDT DERMATOPATHOLOGY LABORATORY at 1636 CDT Clinical History NONHEALING, GROWING, R/O SCC VS BCC 3 4:36 PM CDT DERMATOPATHOLOGY LABORATORY Gross Description Specimen A: Received is one formalin filled container labeled with the patient's name and designated right uatsdin. The specimen consists of a shave biopsy measuring 11x8x2 mm. Jar 0. 3 4:36 PM CDT DERMATOPATHOLOGY LABORATORY Microscopic Description Specimen A. SKIN, right uatsdin: Arising in the epidermis and extending into [...] characteristic determined by the Dermatopathology Laboratory at [facility], directed by Dr. Wes Pearce. These tests need not be, and therefore are not, approved by the [place] Food and Drug Administration. The tests are used for clinical purposes. Billing Codes Specimen Charges Stain Charges 14805 1 3 4:36 PM CDT DERMATOPATHOLOGY LABORATORY Embedded Images 3 4:36 PM CDT DERMATOPATHOLOGY LABORATORY Pathology/Cytolo gy TISSUE SPECIMEN FROM SKIN / Unknown 06/04/2023 1:19 PM CDT 06/05/2023 2:48 PM CDT us Mala Mccord MD LAB - PATHOLOGY/CYTOLOGY ORD ERABLES Final Result DERMATOPATHOLOGY LABORATORY [facility] - Department of Dermatology [facility] [address] [place] [address], [address] [place] [address], [facility] [phone] documented in this encounter Visit Diagnoses Not on filedocumented in this encounter
--- OUTSIDE RECORDS SUMMARY | 2025-08-23 01:16 | XMS_ITS | Clinical Summary ---
Author Organization [facility] Address [address] [place] [address] Care Team Providers Care Pipefitter Welder Name Role Phone Unavailable Primary Care Provider Unavailabl e Source Comments [facility],non-owned Affiliates and Associated Physician Practices is amultiple site organization consisting of ambulatory clinics and hospital sitesin [place], [place], [place] and [place]. This disclosure is being madepursuant to the Care Everywhere program and may not contain all information available regarding this patient. 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
--- OUTSIDE RECORDS SUMMARY | 2025-08-23 01:16 | XMS_ITS | Encounter Summary ---
Author Organization [facility] Address [address] [place] [address] Care Team Providers Care Track Sweeper Name Role Phone Unavailable Primary Care Provider Unavailabl e Encounter Details Date Type Department Care Team (Late st Contact Info) Description 11/25/2023 Lab Requisition [facility] - DermPath Lab [address] [facility] [address] [place] [address] Mala Mccord MD [address] [facility] 3 [place] [address] Social History Tobacco Use Types Packs/Day Years Used Date Smoking Tobacco: Never Assessed Sex and Gender Information Value Date Recorded Sex Assigned at Not on file Legal Sex Male 11:16 AM WATCH CRYSTAL MOLDER Gender Identity Not on file Sexual Orientation Not on file documented as of this encounter Plan of Treatment Not on file documented as of this encounter Procedures Procedure Name Priority Date/Time Associated Diagnosis Comments DERMATOPATHOLOGY Routine 11/25/2023 9:19 AM WATCH CRYSTAL MOLDER documented in this encounter Results * DERMATOPATHOLOGY (11/25/2023 9:19 AM WATCH CRYSTAL MOLDER) Case Report Dermatopathology Report Case: [id number] Authorizing Provider: Mala Mccord MD Collected: 11/25/2023 09:19 AM Ordering Location: [facility] DermPath Lab Received: 11/26/2023 07:35 AM Pathologist: Sandra Feldman MD Specimen: Skin, left arm 12:35 PM WATCH CRYSTAL MOLDER DERMATOPATHOLOGY LABORATORY Final Diagnosis Specimen A. SKIN, left arm: SEBORRHEIC KERATOSIS, INFLAMED (L82.0) 12:35 PM WATCH CRYSTAL MOLDER DERMATOPATHOLOGY LABORATORY at 1235 WATCH CRYSTAL MOLDER Clinical History R/O Melanoma irregular Border, Irregular color, Brown Macule 12:35 PM [facility] DERMATOPATHOLOGY LABORATORY Gross Description Specimen A: Received is one formalin filled container labeled with the patient's name and designated left arm. The specimen consists of a shave biopsy measuring 11x9x1 mm. Jar 0. 12:35 PM [facility] DERMATOPATHOLOGY LABORATORY Microscopic Description Specimen A. SKIN, left arm: There is hyperkeratosis, parakeratosis, papillomatosis, and acanthosis of the epidermis. There is a lymphohistiocytic infiltrate within the papillary dermis that is focally lichenoid. 12:35 PM [facility] DERMATOPATHOLOGY LABORATORY Disclaimer An external and internal positive and negative controls are appropriate for the histochemical, immunohistochemical and immunofluorescence stain(s) in this case (if any), except where stated explicitly. The performance characteristics of the stain(s) cited in this report were developed and its performance characteristic determined by the Dermatopathology Laboratory at [facility], directed by Dr. Wes Pearce. These tests need not be, and therefore are not, approved by the [place] Food and Drug Administration. The tests are used for clinical purposes. Billing Codes Specimen Charges Stain Charges 66277 1 12:35 PM [facility] DERMATOPATHOLOGY LABORATORY Embedded Images 12:35 PM [facility] DERMATOPATHOLOGY LABORATORY Pathology/Cytolo gy TISSUE SPECIMEN FROM SKIN / Unknown 11/25/2023 9:19 AM WATCH CRYSTAL MOLDER 11/26/2023 7:35 AM WATCH CRYSTAL MOLDER us Mala Mccord MD LAB - PATHOLOGY/CYTOLOGY ORD ERABLES Final Result DERMATOPATHOLOGY LABORATORY [facility] - Department of Dermatology [facility] Medicine [address] [place] [address], [address] [phone] documented in this encounter Visit Diagnoses Not on filedocumented in this encounter
--- OUTSIDE RECORDS SUMMARY | 2025-08-23 01:16 | XMS_ITS | Encounter Summary ---
Author Organization [facility] Address [address] [place] [address] Care Team Providers Care Geological Engineering Teacher Name Role Phone Unavailable Primary Care Provider Unavailabl e Encounter Details Date Type Department Care Team (Late st Contact Info) Description 12/02/2024 Lab Requisition [facility] - DermPath Lab [address] [place] [address] Mala Mccord MD [address] [facility] [place] [address] Social History Tobacco Use Types Packs/Day Years Used Date Smoking Tobacco: Never Assessed Sex and Gender Information Value Date Recorded Sex Assigned at Not on file 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 Gender Identity Not on file Sexual Orientation Not on file documented as of this encounter Plan of Treatment Not on file documented as of this encounter Procedures Procedure Name Priority Date/Time Associated Diagnosis Comments DERMATOPATHOLOGY Routine 12/02/2024 10:1 3 AM LINE WELDER documented in this encounter Results * DERMATOPATHOLOGY (12/02/2024 10:13 AM LINE WELDER) Case Report Dermatopathology Report Case: [id number] Authorizing Provider: Mala Mccord MD Collected: 12/02/2024 10:13 AM Ordering Location: [facility] - Received: 12/03/2024 06:56 AM DermPath Lab Pathologist: Nickie Miguel MD Specimens: A) - Skin, crown B) - Skin, right shoulder 1:14 PM [facility] DERMATOPATHOLOGY LABORATORY Final Diagnosis Specimen A. SKIN, crown: BASAL CELL CARCINOMA (C44.41) (see microscopic description and comment) DERMAL FIBROSIS (L90.5) POST-INFLAMMATORY PIGMENT ALTERATION (L81.9) Specimen B. 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 Jar 0. 1:14 PM [facility] DERMATOPATHOLOGY [facility] Microscopic Description Specimen A. [...] around the superficial vascular plexus. 1:14 PM [facility] DERMATOPATHOLOGY [facility]AT[facility] Disclaimer An external and internal positive and negative controls are appropriate for the histochemical, immunohistochemical and immunofluorescence stain(s) in this case (if any), except where stated explicitly. The performance characteristics of the stain(s) cited in this report were developed and its performance characteristic determined by the Dermatopathology Laboratory at [facility], directed by Dr. Wes Pearce. These tests need not be, and therefore are not, approved by the [place] Food and Drug Administration. The tests are used for clinical purposes. Billing Codes Specimen Charges Stain Charges 04157 61847 1 1 1:14 PM [facility] DERMATOPATHOLOGY [facility]ORAT[facility] Embedded Images 1:14 PM [facility] DERMATOPATHOLOGY [facility] Pathology/Cytology TISSUE SPECIMEN FROM SKIN / Unknown 12/02/2024 10:13 AM LINE WELDER 12/03/2024 6:56 AM LINE WELDER Miscellaneous samples (specimen) TISSUE SPECIMEN FROM SKIN / Unknown 12/02/2024 10:13 AM LINE WELDER 12/03/2024 6:56 AM LINE WELDER us Mala Mccord MD LAB - PATHOLOGY/CYTOLOGY ORD ERABLES Final Result DERMATOPATHOLOGY LABORATORY [facility] - Department of Dermatology [facility] [address] [place] [address], [address] [phone] documented in this encounter Visit Diagnoses Not on filedocumented in this encounter
[2025-08-23 09:24] VITALS: BP 144/77; PULSE 71; RESP 20; TEMP 36.3; O2SAT 99
--- NOTE | 2025-08-23 09:30 | WPDANESEPPF ---
Anes - Initial Pre Proc Eval Procedure: Operation Date: 08/23/25 10:30 Proposed Procedures p Diagnostic Colonoscopy - Dk Loyd MD Date/Time: 08/23/25 09:30 Surgeon: Dk Loyd MD Pre Op Diagnosis: Hemorrhage of anus and rectum Patient Data Age: 69 Gender: M Height: 1.78 m Weight: 98.1 kg Last Vital Signs Temp 36.3 C L 08/23/25 09:24 Pulse 71 08/23/25 09:24 Resp 20 08/23/25 09:24 BP 144/77 H 08/23/25 09:24 Pulse Ox 99 08/23/25 09:24 O2 Del Method Room Air 08/23/25 09:24 Allergies Allergy/AdvReac Type Severity Reaction Status Date / Time No Known Allergies Allergy Mild Verified 08/23/25 09:22 Home Medications ?Medication ?Instructions ?Recorded ?Confirmed ?Type L.acidop,casei,lactis,rham-B.lact,trevor 1 cap PO DAILY 05/05/23 08/23/25 History 625 mg (10 billion cell) capsule (Advanced Probiotic) ascorbic acid (vitamin C) 500 mg 250 mg PO DAILY 05/05/23 08/23/25 History tablet fish, borage, flaxseed oils-omega 1 cap PO BID 05/05/23 08/23/25 History 3,6,9 comb no.1 1,200 mg capsule ([place] 3-6-9) ginkgo biloba leaf extract 120 mg 120 mg PO DAILY 05/05/23 08/23/25 History capsule sfzgaitakhr-zsv-jscoglhss-hrb 1 tablet PO BID 05/05/23 08/23/25 History 149-hyalur 500 mg-500 mg-66.7 mg tablet (Cdnctcykwle-Wgesfblrvxf-EWS (with antiox)) nkksoaeksxfs-omj-yhiad acid-vit 1 tablet PO DAILY 05/05/23 08/23/25 History K-lycop 400 mcg-20 mcg-370 mcg tablet (Men's 50 Plus Multivitamin) naproxen sodium 220 mg tablet 440 mg PO DAILY 05/05/23 08/23/25 History sour angulo extract 1,000 mg 1,000 mg PO DAILY 12/04/23 08/23/25 History capsule (Tart Angulo Extract) lisinopril 20 mg tablet 20 mg PO DAILY #100 tabs 05/17/25 08/23/25 Rx omeprazole 40 mg capsule,delayed 40 mg PO DAILY #100 caps 05/17/25 08/23/25 Rx release rosuvastatin 20 mg tablet 20 mg PO DAILY #90 tabs 06/10/25 08/23/25 Rx triamcinolone acetonide 0.1 % 1 applic topical BID PRN itching 08/16/25 08/16/25 History topical cream Patient hx anesthesia problems: none Family hx anesthesia problems: none Results Review: All pre-operative results and documents have been reviewed as part of the pre-operative evaluation. [facility] Past Medical History Medical History Abnormal liver function tests Prostate cancer Other dysphagia Polyosteoarthritis, unspecified Mixed hyperlipidemia Essential (primary) hypertension Social History Social History (Updated 07/13/25 @ 13:04 by Vania Feldman MA) Smoking status: Never smoker Alcohol intake: current Substance use: never Substance use type: does not use Do You Feel Safe in your Home?: Yes Lack of Transportation: No Lack of Food: Never True Current Housing: I Have Housing Concerned About Future Housing: No Difficulty Paying Gas/Electric Bills: No Difficulty Paying for Meds: No Currently Unemployed: No Education: High School Diploma/GED Difficulty w/ Childcare or Family Care: No Living arrangements: with family Occupation/Education: retired Gender identity (if verbalized by the patient): Male Sexual Orientation (if Verbalized by the Patient): Straight or Heterosexual Spiritual care concerns: No Anes - Eval Final PreProcedure Day of Procedure 08/23/25 09:30 Patient weight: obese Heart: regular rate and rhythm Lungs: clear to auscultation Airway: Mallampati scale class II Neurological: alert and oriented Last oral intake: >/= 8 hours ASA classification: III Emergent: no Anesthetic plan: proceed Anesthesia type and monitoring: general GIVS and standard monitoring Results Review: All pre-operative results and documents have been reviewed as part of the pre-operative evaluation. Informed Consent: The patient's anesthetic plan and its attendant risks and benefits were discussed with the patient/family/POA. Questions were solicited and answers provided to the satisfaction of the patient/family/POA.
[2025-08-23] MEDS: LACTATED RINGERS 1,000 ML 150 ML IV CONT (09:35)
--- NOTE | 2025-08-23 09:49 | PM.HPGS ---
History of Present Illness History of Present Illness Consent: Risks, benefits, and alternatives have been discussed and questions answered. Patient agrees to proceed with procedure. Chief complaint: Hemorrhage of anus and rectum Narrative: Romaine Feldman is a 69 year old male with blood in stool, last colonoscopy about 10 years ago Review of Systems Review of Systems: All systems reviewed & are unremarkable except as noted in HPI and below PMFSH Past Medical History Medical History (Updated 08/23/25 @ 09:50 by Dk Loyd MD) Blood in stool Abnormal liver function tests Prostate cancer Other dysphagia Polyosteoarthritis, unspecified Mixed hyperlipidemia Essential (primary) hypertension Social History Social History (Updated 07/13/25 @ 13:04 by Vania Feldman MA) Smoking status: Never smoker Alcohol intake: current Substance use: never Substance use type: does not use Do You Feel Safe in your Home?: Yes Lack of Transportation: No Lack of Food: Never True Current Housing: I Have Housing Concerned About Future Housing: No Difficulty Paying Gas/Electric Bills: No Difficulty Paying for Meds: No Currently Unemployed: No Education: High School Diploma/GED Difficulty w/ Childcare or Family Care: No Living arrangements: with family Occupation/Education: retired Gender identity (if verbalized by the patient): Male Sexual Orientation (if Verbalized by the Patient): Straight or Heterosexual Spiritual care concerns: No Meds Home Medications and Allergies Home Medications ?Medication ?Instructions ?Recorded ?Confirmed ?Type L.acidop,casei,lactis,rham-B.lact,trevor 1 cap PO DAILY 05/05/23 08/23/25 History 625 mg (10 billion cell) capsule (Advanced Probiotic) ascorbic acid (vitamin C) 500 mg 250 mg PO DAILY 05/05/23 08/23/25 History tablet fish, borage, flaxseed oils-omega 1 cap PO BID 05/05/23 08/23/25 History 3,6,9 comb no.1 1,200 mg capsule ([place] 3-6-9) ginkgo biloba leaf extract 120 mg 120 mg PO DAILY 05/05/23 08/23/25 History capsule mxskcectnlo-liy-yqenuquje-hrb 1 tablet PO BID 05/05/23 08/23/25 History 149-hyalur 500 mg-500 mg-66.7 mg tablet (Ewqdirpmbmm-Ausxqjsfrle-PDJ (with antiox)) gkmmzofpvdgw-pfd-ypndc acid-vit 1 tablet PO DAILY 05/05/23 08/23/25 History K-lycop 400 mcg-20 mcg-370 mcg tablet (Men's 50 Plus Multivitamin) naproxen sodium 220 mg tablet 440 mg PO DAILY 05/05/23 08/23/25 History sour angulo extract 1,000 mg 1,000 mg PO DAILY 12/04/23 08/23/25 History capsule (Tart Angulo Extract) lisinopril 20 mg tablet 20 mg PO DAILY #100 tabs 05/17/25 08/23/25 Rx omeprazole 40 mg capsule,delayed 40 mg PO DAILY #100 caps 05/17/25 08/23/25 Rx release rosuvastatin 20 mg tablet 20 mg PO DAILY #90 tabs 06/10/25 08/23/25 Rx triamcinolone acetonide 0.1 % 1 applic topical BID PRN itching 08/16/25 08/16/25 History topical cream Allergies Allergy/AdvReac Type Severity Reaction Status Date / Time No Known Allergies Allergy Mild Verified 08/23/25 09:22 Vital Signs Vital Signs - 24 hr 08/23/25 09:24 Temperature 97.3 F L Pulse Rate 71 Respiratory Rate 20 Blood Pressure 144/77 H Pulse Oximetry 99 Oxygen Delivery Room Air Exam Const: General: comfortable and no acute distress HENMT: Face/Nose/Sinus: Normal nares present Eyes: General: appearance normal, both eyes and all related structures Resp: Auscultation: clear to auscultation bilaterally Cardio: Rate: regular rate Rhythm: regular rhythm GI: Inspection: non-distended GI Palp: Yes Soft to palpation Skin: General skin exam: normal color Extrem: General: normal to inspection Psych: Mental Status: mental status grossly normal Assessment and Plan Assessment and plan (1) Blood in stool: Code(s): K92.1 - Melena Status: Acute Assessment and Plan: colonoscopy
[2025-08-23 10:05] VITALS: BP 109/63; PULSE 69; RESP 19; O2SAT 100
[2025-08-23 10:15] VITALS: BP 121/63; PULSE 64; RESP 18; O2SAT 99
[2025-08-23 10:25] VITALS: BP 127/73; PULSE 62; RESP 18; O2SAT 100
== END 2025-08-23 10:36 | disposition home or self-care (01) ==
PROVIDERS: PCP Family Medicine; Referring Provider Family Medicine; Visit Provider Internal Medicine Gastroenterology
PROC: 0DJD8ZZ Inspection of Lower Intestinal Tract, Via Natural or Artificial Opening Endoscopic (ICD-10-PCS; CPT 45378; principal; 2025-08-23 10:30)
DX: K57.30 Diverticulosis of large intestine without perforation or abscess without bleeding (principal); K55.20 Angiodysplasia of colon without hemorrhage; I10 Essential (primary) hypertension; E78.2 Mixed hyperlipidemia; M19.90 Unspecified osteoarthritis, unspecified site; E66.9 Obesity, unspecified; Z68.31 Body mass index [BMI] 31.0-31.9, adult; Z79.1 Long term (current) use of non-steroidal anti-inflammatories (NSAID); Z85.46 Personal history of malignant neoplasm of prostate
CPT/HCPCS: 45382; J2003; J2704; J7120